=== PATIENT | female | born 1990 | race Caucasian/White ===

== ENCOUNTER → 2016-10-06 | Outpatient (CLI) | payer BC, OTHER ==
[~2016-10-06] VITALS: Ht 162.6 cm; Wt 68.0 kg
[2016-10-06 07:27] LABS: RED BLOOD COUNT 4.11 M/UL (4.00-5.10); WHITE BLOOD COUNT 5.4 K/UL (4.5-11.0)
[2016-10-06 07:51] LABS: BUN/CREATININE RATIO 46 (0-10)
== END ==
LOC: OPSV 06:59
PROVIDERS: Internal Medicine
DX: K51.90 Ulcerative colitis, unspecified, without complications (principal)
CPT/HCPCS: 36415; 80053; 85025; 86140; 96375; 96413; 96415; J1720; J1745; Q0163

== ENCOUNTER → 2016-12-01 | Outpatient (CLI) | payer BC, OTHER ==
[~2016-12-01] VITALS: Ht 162.6 cm; Wt 68.0 kg
[2016-12-01 07:38] LABS: HEMOGLOBIN 12.4 gm/dl (12.3-15.3); RED BLOOD COUNT 4.2 M/UL (4.00-5.10); WHITE BLOOD COUNT 5.8 K/UL (4.5-11.0)
[2016-12-01 08:00] LABS: BUN/CREATININE RATIO 32 (0-10)
== END ==
LOC: OPSV 06:58
PROVIDERS: Internal Medicine
DX: K51.90 Ulcerative colitis, unspecified, without complications (principal)
CPT/HCPCS: 36415; 80053; 85025; 86140; 96375; 96413; 96415; J1720; J1745; Q0163

== ENCOUNTER → 2017-01-26 | Outpatient (CLI) | payer BC ==
[~2017-01-26] VITALS: Ht 162.6 cm; Wt 68.0 kg
[2017-01-26 08:37] LABS: HEMOGLOBIN 12.1 gm/dl (12.3-15.3); RED BLOOD COUNT 4.1 M/UL (4.00-5.10); WHITE BLOOD COUNT 6.1 K/UL (4.5-11.0)
[2017-01-26 08:57] LABS: BUN/CREATININE RATIO 40 (0-10)
== END ==
LOC: OPSV 06:50
PROVIDERS: Internal Medicine
DX: K51.90 Ulcerative colitis, unspecified, without complications (principal)
CPT/HCPCS: 36415; 80053; 85025; 86140; 96375; 96413; 96415; J1720; J1745; Q0163

== ENCOUNTER → 2020-09-07 | Outpatient (CLI) | payer OTHER ==
[~2020-09-07] VITALS: Ht 162.6 cm; Wt 81.6 kg
[~2020-09-07] MED LIST: IBUPROFEN600 MG PO; IMURAN TAB 50 M50 MG PO; LORTAB 5-325 M1 EACH PO; PEPCID20 MG PO; REMICADE I100 MG/VIA IV
[2020-09-10 14:13] LABS: QUANTIFERON MITOGEN VALUE >10.00 IU/mL (.); QUANTIFERON NIL VALUE 0.03 IU/mL (.); QUANTIFERON TB1 AG VALUE 0.06 IU/mL (.); QUANTIFERON TB2 AG VALUE 0.04 IU/mL (.); QUANTIFERON-TB GOLD PLUS Negative (Negative)
== END ==
LOC: OPSV 08:00
PROVIDERS: Internal Medicine
DX: K51.30 Ulcerative (chronic) rectosigmoiditis without complications (principal); D89.9 Disorder involving the immune mechanism, unspecified; D64.9 Anemia, unspecified; E66.9 Obesity, unspecified; E55.9 Vitamin D deficiency, unspecified
CPT/HCPCS: 36415; 96365; 96366; 96375; 96413; 96415; J1720; J1745; J7050

== ENCOUNTER 2020-09-15 11:32 | Emergency (ER) | payer OTHER ==
[~2020-09-15 11:32] MED LIST changes: -PEPCID20 MG PO
[2020-09-15 12:48] LABS: HEMOGLOBIN 13.9 gm/dl (12.3-15.3); RED BLOOD COUNT 4.49 M/UL (4.00-5.10); WHITE BLOOD COUNT 10.7 K/UL (4.5-11.0)
[2020-09-15 13:02] LABS: BUN/CREATININE RATIO 34 (0-10)
[2020-09-15] MEDS ORDERED: PEPCID20 MG PO (15:56)
== END 2020-09-15 16:15 | disposition home or self-care (01) ==
LOC: ER1 11:32
DX: K27.9 Peptic ulcer, site unspecified, unspecified as acute or chronic, without hemorrhage or perforation (principal); K21.9 Gastro-esophageal reflux disease without esophagitis; Z90.49 Acquired absence of other specified parts of digestive tract; Z98.890 Other specified postprocedural states
CPT/HCPCS: 36415; 80053; 81001; 83690; 84703; 85025; 99284

== ENCOUNTER → 2020-11-16 | Outpatient (CLI) | payer OTHER ==
[~2020-11-16] VITALS: Ht 162.6 cm; Wt 81.6 kg
[~2020-11-16] MED LIST changes: +PEPCID20 MG PO
[2020-11-16 07:53] LABS: HEMOGLOBIN 12.9 gm/dl (12.3-15.3); RED BLOOD COUNT 4.18 M/UL (4.00-5.10); WHITE BLOOD COUNT 9.3 K/UL (4.5-11.0)
[2020-11-16 07:57] LABS: BUN/CREATININE RATIO 27 (0-10)
== END ==
LOC: OPSV 07:00
PROVIDERS: Internal Medicine
DX: Z51.81 Encounter for therapeutic drug level monitoring (principal); D84.9 Immunodeficiency, unspecified; R20.0 Anesthesia of skin; R20.2 Paresthesia of skin; E66.9 Obesity, unspecified; K51.90 Ulcerative colitis, unspecified, without complications; K51.30 Ulcerative (chronic) rectosigmoiditis without complications; E55.9 Vitamin D deficiency, unspecified
CPT/HCPCS: 80053; 85025; 86140; 96365; 96366; 96375; 96413; 96415; J1720; J1745; J7050

== ENCOUNTER → 2021-01-11 | Outpatient (CLI) | payer OTHER ==
[~2021-01-11] VITALS: Ht 162.6 cm; Wt 90.7 kg
[2021-01-11 07:58] LABS: HEMOGLOBIN 12.5 gm/dl (12.3-15.3); RED BLOOD COUNT 4.28 M/UL (4.00-5.10); WHITE BLOOD COUNT 7.9 K/UL (4.5-11.0)
[2021-01-11 08:46] LABS: BUN/CREATININE RATIO 31 (0-10)
== END ==
LOC: OPSV 06:59
PROVIDERS: Internal Medicine
DX: Z51.81 Encounter for therapeutic drug level monitoring (principal); Z79.899 Other long term (current) drug therapy; D84.9 Immunodeficiency, unspecified; R20.0 Anesthesia of skin; R20.2 Paresthesia of skin; E66.9 Obesity, unspecified; K51.90 Ulcerative colitis, unspecified, without complications; K51.30 Ulcerative (chronic) rectosigmoiditis without complications; E55.9 Vitamin D deficiency, unspecified; Z86.2 Personal history of diseases of the blood and blood-forming organs and certain disorders involving the immune mechanism; Z82.49 Family history of ischemic heart disease and other diseases of the circulatory system
CPT/HCPCS: 80053; 85025; 86140; 96374; 96413; 96415; J1720; J1745; J7050

== ENCOUNTER → 2021-03-08 | Outpatient (CLI) | payer OTHER ==
[~2021-03-08] VITALS: Ht 162.6 cm; Wt 90.7 kg
[2021-03-08 07:32] LABS: HEMOGLOBIN 12.6 gm/dl (12.3-15.3); RED BLOOD COUNT 4.32 M/UL (4.00-5.10); WHITE BLOOD COUNT 9.7 K/UL (4.5-11.0)
[2021-03-08 07:47] LABS: BUN/CREATININE RATIO 26 (0-10)
== END ==
LOC: OPSV 06:55
PROVIDERS: Internal Medicine
DX: Z51.81 Encounter for therapeutic drug level monitoring (principal); D84.9 Immunodeficiency, unspecified; R20.0 Anesthesia of skin; R20.2 Paresthesia of skin; K51.90 Ulcerative colitis, unspecified, without complications; K51.30 Ulcerative (chronic) rectosigmoiditis without complications; E55.9 Vitamin D deficiency, unspecified; E66.9 Obesity, unspecified; Z79.899 Other long term (current) drug therapy
CPT/HCPCS: 80053; 85025; 86140; 96375; 96413; 96415; J1720; J1745; J7050

== ENCOUNTER → 2021-05-03 | Outpatient (CLI) | payer OTHER ==
[~2021-05-03] VITALS: Ht 162.6 cm; Wt 90.7 kg
[2021-05-03 07:52] LABS: HEMOGLOBIN 13.2 gm/dl (12.3-15.3); RED BLOOD COUNT 4.3 M/UL (4.00-5.10); WHITE BLOOD COUNT 8.8 K/UL (4.5-11.0)
[2021-05-03 08:12] LABS: BUN/CREATININE RATIO 25 (0-10)
== END ==
LOC: OPSV 07:00
PROVIDERS: Internal Medicine
DX: Z51.81 Encounter for therapeutic drug level monitoring (principal); R20.2 Paresthesia of skin; D84.9 Immunodeficiency, unspecified; K51.90 Ulcerative colitis, unspecified, without complications; K51.30 Ulcerative (chronic) rectosigmoiditis without complications; E55.9 Vitamin D deficiency, unspecified; E66.9 Obesity, unspecified; Z79.899 Other long term (current) drug therapy
CPT/HCPCS: 36415; 80053; 85025; 86140; 96375; 96413; 96415; J1720; J1745; J7050

== ENCOUNTER → 2021-06-28 | Outpatient (CLI) | payer OTHER ==
[~2021-06-28] VITALS: Ht 162.6 cm; Wt 90.7 kg
[2021-06-28 09:09] LABS: HEMOGLOBIN 12.5 gm/dl (12.3-15.3); RED BLOOD COUNT 4.1 M/UL (4.00-5.10); WHITE BLOOD COUNT 8.7 K/UL (4.5-11.0)
[2021-06-28 09:44] LABS: BUN/CREATININE RATIO 30 (0-10)
== END ==
LOC: OPSV 07:00
PROVIDERS: Internal Medicine
DX: K51.30 Ulcerative (chronic) rectosigmoiditis without complications (principal); Z51.81 Encounter for therapeutic drug level monitoring; Z79.899 Other long term (current) drug therapy; D84.9 Immunodeficiency, unspecified; R20.0 Anesthesia of skin; R20.2 Paresthesia of skin; E66.9 Obesity, unspecified; K51.90 Ulcerative colitis, unspecified, without complications; E55.9 Vitamin D deficiency, unspecified
CPT/HCPCS: 36415; 80053; 85025; 86140; 96375; 96413; 96415; J1720; J1745; J7050

== ENCOUNTER → 2021-09-03 | Outpatient (CLI) | payer OTHER ==
[~2021-09-03] VITALS: Ht 162.6 cm; Wt 96.2 kg
[2021-09-03 13:09] LABS: HEMOGLOBIN 13.1 gm/dl (12.3-15.3); RED BLOOD COUNT 4.34 M/UL (4.00-5.10); WHITE BLOOD COUNT 8.7 K/UL (4.5-11.0)
[2021-09-03 13:52] LABS: BUN/CREATININE RATIO 26 (0-10)
== END ==
LOC: OPSV 08-23 09:00
PROVIDERS: Internal Medicine
DX: K51.30 Ulcerative (chronic) rectosigmoiditis without complications (principal)
CPT/HCPCS: 36415; 80053; 85025; 86140; 96375; 96413; 96415; J1720; J1745; J7030

== ENCOUNTER → 2021-10-29 | Outpatient (CLI) | payer OTHER ==
[~2021-10-29] VITALS: Ht 162.6 cm; Wt 81.6 kg
[2021-10-29 12:05] LABS: HEMOGLOBIN 13.2 gm/dl (12.3-15.3); RED BLOOD COUNT 4.32 M/UL (4.00-5.10); WHITE BLOOD COUNT 7.5 K/UL (4.5-11.0)
[2021-10-29 12:27] LABS: BUN/CREATININE RATIO 30 (0-10)
== END ==
LOC: OPSV 11:42
PROVIDERS: Internal Medicine
DX: Z51.81 Encounter for therapeutic drug level monitoring (principal); Z79.899 Other long term (current) drug therapy; K51.30 Ulcerative (chronic) rectosigmoiditis without complications; K51.90 Ulcerative colitis, unspecified, without complications; E55.9 Vitamin D deficiency, unspecified; R20.0 Anesthesia of skin; R20.2 Paresthesia of skin; D84.9 Immunodeficiency, unspecified; E66.9 Obesity, unspecified
CPT/HCPCS: 80053; 85025; 86140; 96375; 96413; J1720; J1745; J7030

== ENCOUNTER → 2021-12-24 | Outpatient (CLI) | payer OTHER ==
[~2021-12-24] VITALS: Ht 162.6 cm; Wt 90.7 kg
[2021-12-24 10:22] LABS: HEMOGLOBIN 13.8 gm/dl (12.3-15.3); RED BLOOD COUNT 4.51 M/UL (4.00-5.10); WHITE BLOOD COUNT 6.8 K/UL (4.5-11.0)
[2021-12-24 11:11] LABS: BUN/CREATININE RATIO 26 (0-10)
[2021-12-28 16:26] LABS: QUANTIFERON MITOGEN VALUE >10.00 IU/mL (.); QUANTIFERON NIL VALUE 0.03 IU/mL (.); QUANTIFERON TB1 AG VALUE 0.03 IU/mL (.); QUANTIFERON TB2 AG VALUE 0.02 IU/mL (.); QUANTIFERON-TB GOLD PLUS Negative (Negative)
== END ==
LOC: OPSV 09:00
PROVIDERS: Internal Medicine
DX: K51.30 Ulcerative (chronic) rectosigmoiditis without complications (principal)
CPT/HCPCS: 80053; 85025; 86140; 96375; 96413; 96415; J1720; J1745; J7030

== ENCOUNTER → 2022-03-07 | Outpatient (CLI) | payer OTHER ==
[~2022-03-07] VITALS: Ht 162.6 cm; Wt 90.7 kg
[2022-03-07 09:17] LABS: HEMOGLOBIN 12.5 gm/dl (12.3-15.3); RED BLOOD COUNT 4.07 M/UL (4.00-5.10); WHITE BLOOD COUNT 7.8 K/UL (4.5-11.0)
[2022-03-07 09:39] LABS: BUN/CREATININE RATIO 39 (0-10)
== END ==
LOC: OPSV 02-18 10:00
PROVIDERS: Internal Medicine Gastroenterology
DX: K51.30 Ulcerative (chronic) rectosigmoiditis without complications (principal)
CPT/HCPCS: 80053; 85025; 86140; 96375; 96413; 96415; J1720; J1745; J7030

== ENCOUNTER → 2022-05-02 | Outpatient (CLI) | payer OTHER ==
[~2022-05-02] VITALS: Ht 162.6 cm; Wt 90.7 kg
[2022-05-02 09:44] LABS: HEMOGLOBIN 12.5 gm/dl (12.3-15.3); RED BLOOD COUNT 4.13 M/UL (4.00-5.10); WHITE BLOOD COUNT 5.9 K/UL (4.5-11.0)
[2022-05-02 10:04] LABS: BUN/CREATININE RATIO 31 (0-10)
== END ==
LOC: OPSV 09:00
PROVIDERS: Internal Medicine
DX: K51.30 Ulcerative (chronic) rectosigmoiditis without complications (principal)
CPT/HCPCS: 80053; 85025; 86140; 96375; 96413; 96415; J1720; J1745; J7030